=== PATIENT | female | born 1945 | race Caucasian/White ===

== ENCOUNTER → 2016-06-10 | Outpatient (CLI) | payer OTHER ==
[~2016-06-10] MED LIST: ASPIR-LOW81 MG PO; CLIMARA0.075 MG TD; COSOPT EYE DROPS5 ML LEFT EYE; DAILY VALUE1 EACH PO; EFFIENT10 MG PO; ELIQUIS5 MG PO; ESTROGEL50 GM TD; ESTROGEN PATCH TD; ESTROGEN TD; FOLIC ACID1 MG PO; FOLIC ACID20 MG PO; INDOCIN25 MG PO; INDOMETHACIN25 MG PO; INDOMETHACIN50 MG PO; LISINOPRIL20 MG PO; MAGNESIUM400 M1 PO; MAGNESIUM400 MG PO; MUCINEX D TABL1 EACH PO; PLAVIX75 MG PO; PRAVASTATIN SOD40 MG PO; PRED FORTE100 DROP/5 BOTH EYES; PREDNISONE10 MG PO; PROPOXYPHENE1 TABLET PO; SALINE NASAL SP45 ML BOTH NARES; SULFASALAZINE500 M1 PO; SULFASALAZINE500 MG PO; VALACYCLOVIR1000 MG PO; VENLAFAXINE H37.5 MG PO
== END | disposition home or self-care (01) ==
LOC: RES 10:58
DX: J44.9 Chronic obstructive pulmonary disease, unspecified (principal); R91.1 Solitary pulmonary nodule
CPT/HCPCS: 94060; 94726; 94729